=== PATIENT | female | born 1965 | race Caucasian/White ===

== ENCOUNTER 2016-09-27 21:25 | Emergency (ER) | payer MEDICAID ==
--- NOTE | 2016-09-27 21:32 | ED Physician Chart ---
Chief Complaint/HPI - Patient Information Date Seen:: 09/27/16 Time Seen:: 21:32 Chief Complaint:: throat pain History of Present Illness:: 51-year-old female history of esophageal stricture complains of acute, intermittent, moderate to severe, 8 out of 10, throat pain that feels like someone is squeezing her throat since yesterday. Has had similar symptoms in the past. Has some associated sensation of shortness of breath. Has regular EGDs every 3 months for esophageal dilatation. History is for dilatation. Has used albuterol in the past which helps her Historian:: Patient Review:: Nurse's Note Reviewed Review of Systems - Review of Systems Other: Complete system review otherwise unremarkable except as noted in history of present illness. Past Medical History - Past Medical History Past Medical History: Other (cervical cancer, esophageal stricture) Family History: None Social History: Non Smoker, No Alcohol, No Drug Use, Other Surgical History: None Psychiatricy History: None Medication: Reviewed Family Medical History - Family Member Mother History Unknown: Yes Physical Exam - Physical Examination Other:: INITIAL VITAL SIGNS: Reviewed by me GENERAL: Alert and interactive. No acute distress HEAD: Head is normocephalic and atraumatic EYES: EOMI. PERRL. No scleral icterus. No conjunctival injection ENT: Moist mucous membranes. NECK: Supple. No masses. Full range of motion RESPIRATORY: No tachypnea. Clear breath sounds bilaterally. No wheezing, rales, or rhonchi CV: Regular rate and rhythm. No murmurs, rubs, or gallops ABDOMEN: Soft, non-distended, non-tender. No guarding. No rebound. No masses. EXTREMITIES: No deformity. No cyanosis. No edema. SKIN: Warm and dry. No obvious rashes. NEUROLOGIC: Alert and oriented. Face is symmetric. Speech is normal. Moves all extremities equally. Motor and sensory distally intact. Labs/Radiology/EKG Results - Lab Results Results: Lab Results 09/27/16 09/27/16 09/27/16 Range/Units 21:44 21:44 21:44 WBC 6.4 (4.8-10.8) Th/cmm RBC 3.64 L (3.80-5.10) Mil/cmm Hgb 12.1 (11.7-15.5) gm/dL Hct 34.1 L (35.0-45.0) % MCV 93.7 (81-100) fl MCH 33.2 H (27.0-31.0) pg MCHC Differential 35.4 (28.0-36.0) pg RDW 12.5 (11.5-20.0) % Plt Count 248 (150-400) Th/cmm MPV 7.2 fl Neutrophils % 51.6 (40.0-80.0) % Lymphocytes % 33.5 (20.0-50.0) % Monocytes % 8.7 (2.0-10.0) % Eosinophils % 5.8 H (0.0-5.0) % Basophils % 0.4 (0.0-2.0) % PT 12.0 H (9.5-11.5) SECONDS INR 1.14 (0.5-1.4) Sodium 137 (136-145) mEq/L Potassium 3.7 (3.5-5.1) mEq/L Chloride 107 (98-107) mEq/L Carbon Dioxide 24.7 (21.0-31.0) mEq/L Anion Gap 9.0 (7.0-16.0) BUN 9 (7-25) mg/dL Creatinine 0.6 (0.6-1.2) mg/dL Est GFR ( Amer) > 60.0 (>90) ml/min Est GFR (Non-Af Amer) > 60.0 ml/min BUN/Creatinine Ratio 15.0 Glucose 93 (70-105) mg/dL Calcium 8.9 (8.6-10.3) mg/dL Total Bilirubin 0.4 (0.3-1.0) mg/dL AST 18 (13-39) U/L ALT 16 (7-52) U/L Alkaline Phosphatase 50 (34-104) U/L Creatine Kinase 66 (30-223) U/L Troponin I (0.01-0.05) ng/mL B-Natriuretic Peptide (5.0-100.0) pg/mL Total Protein 6.6 (6.0-8.3) gm/dL Albumin 3.9 (3.7-5.3) gm/dL Globulin 2.7 gm/dL Albumin/Globulin Ratio 1.4 (1.0-1.8) 09/27/16 Range/Units 21:44 WBC (4.8-10.8) Th/cmm RBC (3.80-5.10) Mil/cmm Hgb (11.7-15.5) gm/dL Hct (35.0-45.0) % MCV (81-100) fl MCH (27.0-31.0) pg MCHC Differential (28.0-36.0) pg RDW (11.5-20.0) % Plt Count (150-400) Th/cmm MPV fl Neutrophils % (40.0-80.0) % Lymphocytes % (20.0-50.0) % Monocytes % (2.0-10.0) % Eosinophils % (0.0-5.0) % Basophils % (0.0-2.0) % PT (9.5-11.5) SECONDS INR (0.5-1.4) Sodium (136-145) mEq/L Potassium (3.5-5.1) mEq/L Chloride (98-107) mEq/L Carbon Dioxide (21.0-31.0) mEq/L Anion Gap (7.0-16.0) BUN (7-25) mg/dL Creatinine (0.6-1.2) mg/dL Est GFR ( Amer) (>90) ml/min Est GFR (Non-Af Amer) ml/min BUN/Creatinine Ratio Glucose (70-105) mg/dL Calcium (8.6-10.3) mg/dL Total Bilirubin (0.3-1.0) mg/dL AST (13-39) U/L ALT (7-52) U/L Alkaline Phosphatase (34-104) U/L Creatine Kinase (30-223) U/L Troponin I < 0.01 L (0.01-0.05) ng/mL B-Natriuretic Peptide 18.3 (5.0-100.0) pg/mL Total Protein (6.0-8.3) gm/dL Albumin (3.7-5.3) gm/dL Globulin gm/dL Albumin/Globulin Ratio (1.0-1.8) - Radiology Results Results: Single AP VIEW Portable Chest X-ray was interpreted independently and contemporaneously by Ad Kraft MD: No cardiomegaly Normal mediastinum No lung infiltrates No pneumothorax No soft tissue or bony abnormalities - EKG Interpretations Comments:: 12-lead EKG Interpretation by dA Kraft MD: Normal Sinus Rhythm with ventricular rate of 64 beats per minute Normal axis Normal intervals No acute ST or T wave changes. No obvious STEMI ED Septic Shock - . Is Septic Shock (SBP<90, OR Lactate>4 mmol\L) present?: No Reassessment (Disposition) - Reassessment Reassessment:: Patient has chronic issues with esophageal stricture. She felt much better after treatment. There was no sign of acute distress. Labs were essentially unremarkable. Recommended follow-up with PCP 1-2 days. Gave return to ER precautions. Patient understands and agrees with the plan. Blood pressure was noted to be elevated over 120/80. There were no signs of hypertension. Discussed the findings with the patient and recommended that the patient follow up with the primary care physician regarding the elevated blood pressure. Reassessment Condition:: Improved - Diagnosis Diagnosis:: Acute throat pain due to esophageal stricture Elevated blood pressure without the diagnosis of hypertension - Aftercare/Follow up Instructions Aftercare/Follow-Up Instructions:: Counseled pt regarding lab results/diagnosis & need follow up, Refer to Discharge Instructions - Patient Disposition Discharge/Transfer:: Home Time:: 23:02 Condition at Disposition:: Improved ED Discharge Plan - Patient Disposition Admit/Discharge/Transfer: PT DISCHARGED HOME Condition at Disposition: Improved Instructions: Esophageal Stricture
[2016-09-27] MEDS ORDERED: Sodium Chloride 0.9% 1,000 ML IV ONE (21:39)
[2016-09-27 21:51] LABS: % BASOPHILS 0.4 % (0.0-2.0); % EOSINOPHILS 5.8 % (0.0-5.0); % LYMPHOCYTES 33.5 % (20.0-50.0); % MONOCYTES 8.7 % (2.0-10.0); % NEUTROPHILS 51.6 % (40.0-80.0); HEMATOCRIT 34.1 % (35.0-45.0); HEMOGLOBIN 12.1 gm/dL (11.7-15.5); MEAN CELL VOLUME 93.7 fl (81-100); MEAN CORPUSCULAR HEMOGLOBIN 33.2 pg (27.0-31.0); MEAN CORPUSCULAR HGB CONC 35.4 pg (28.0-36.0); MEAN PLATELET VOLUME 7.2 fl; NEUTROPHILE ABSOLUTE 3.3 Th/cmm (1.8-8.0); PLATELET COUNT 248 Th/cmm (150-400); RED BLOOD COUNT 3.64 Mil/cmm (3.80-5.10); RED CELL DISTRIBUTION WIDTH 12.5 % (11.5-20.0); WHITE BLOOD COUNT 6.4 Th/cmm (4.8-10.8)
[2016-09-27 22:05] LABS: INR 1.14 (0.5-1.4)
[2016-09-27 22:07] LABS: ALB/GLOB RATIO 1.4 (1.0-1.8); ALKALINE PHOSPHATASE 50 U/L (34-104); BILIRUBIN,TOTAL 0.4 mg/dL (0.3-1.0); BUN - UREA NITROGEN 9 mg/dL (7-25); CALCIUM SERUM 8.9 mg/dL (8.6-10.3); CARBON DIOXIDE 24.7 mEq/L (21.0-31.0); CHLORIDE 107 mEq/L (98-107); CREATININE - SERUM 0.6 mg/dL (0.6-1.2); GLUCOSE 93 mg/dL (70-105); POTASSIUM SERUM 3.7 mEq/L (3.5-5.1); SGOT 18 U/L (13-39); SGPT/ALT 16 U/L (7-52); SODIUM SERUM 137 mEq/L (136-145)
[2016-09-27 22:09] LABS: TROP I < 0.01 ng/mL (0.01-0.05)
[2016-09-27 22:14] LABS: BNP 18.3 pg/mL (5.0-100.0)
[2016-09-27] MEDS ORDERED: Albuterol/Ipratropium Neb 3 ML AERS HHN ONE ×2 (22:20→22:30)
[2016-09-27] MEDS ORDERED: Dexamethasone Sodium Phos 4 mg/mL Vial IM STA (22:20)
[2016-09-27] MEDS ORDERED: Dexamethasone Sodium Phos 10 mg/mL PF Vial ONE (22:36)
== END 2016-09-27 23:40 | disposition home or self-care (01) ==
LOC: ER 21:25
DX: K22.2 Esophageal obstruction (principal); R04.0 Epistaxis; Z88.6 Allergy status to analgesic agent; Z88.8 Allergy status to other drugs, medicaments and biological substances; Z85.41 Personal history of malignant neoplasm of cervix uteri
CPT/HCPCS: 99285; 96372 ×2; 94640; 93005; 84484; 83880; 36415; 85025; 85610; 82550; 80053; J1885; 81025-TC; J2060; J7030

== ENCOUNTER 2016-10-02 19:21 | Emergency (ER) | payer MEDICAID ==
--- NOTE | 2016-10-02 19:24 | ED Physician Chart ---
Chief Complaint/HPI - Patient Information Date Seen:: 10/02/16 Time Seen:: 19:24 Chief Complaint:: throat pain History of Present Illness:: 51-year-old female, history of esophageal strictures, complains of acute, moderate, sensation of throat pain that started several days ago. Has had multiple similar symptoms in the past. Typically uses albuterol and ipratropium breathing treatments which makes her symptoms better. Says that she gets esophageal dilatation every 3 much which also helps her symptoms. Denies any choking, inability to talk, shortness of breath, nausea, vomiting, headache, acute vision changes, chest pain or palpitations. Allergies:: Allergies Allergy/AdvReac Type Severity Reaction Status Date / Time acetaminophen [From Vicodin] Allergy Verified 09/27/16 22:50 hydrocodone [From Vicodin] Allergy Verified 09/27/16 22:50 morphine Allergy Verified 09/27/16 22:50 Historian:: Patient Review:: Nurse's Note Reviewed Review of Systems - Review of Systems Other: Complete system review otherwise unremarkable except as noted in history of present illness. Past Medical History - Past Medical History Past Medical History: HTN, Other (esophageal strictures, history of cervical cancer) Family History: None Social History: Non Smoker, No Alcohol, No Drug Use Surgical History: None Psychiatricy History: None Medication: None Family Medical History - Family Member Mother History Unknown: Yes Physical Exam - Physical Examination Other:: INITIAL VITAL SIGNS: Reviewed by me GENERAL: Alert. Well developed and well nourished HEAD: Normocephalic EYES: No conjunctival injection ENT: Oral mucosa is moist NECK: Supple. No masses. Full range of motion RESPIRATORY: Non-labored respirations CV: 2+ peripheral pulses EXTREMITIES: No deformity SKIN: Warm and dry NEUROLOGIC: Alert ED Septic Shock - . Is Septic Shock (SBP<90, OR Lactate>4 mmol\L) present?: No Reassessment (Disposition) - Reassessment Reassessment:: Patient was seen by me. I have seen her in the past for similar symptoms. Discussed treatment. We agreed that ordering albuterol to troponin would help her. I ordered it for her. Within several minutes she told the front office assistant that she did not do that she needed treatment. And she eloped prior to receiving treatment. Reassessment Condition:: Improved - Diagnosis Diagnosis:: Acute Throat pain - Patient Disposition Discharge/Transfer:: Faina/FABIEN Time:: 19:34 Condition at Disposition:: Improved ED Discharge Plan - Patient Disposition Condition at Disposition: Improved
[2016-10-02] MEDS ORDERED: Albuterol/Ipratropium Neb 3 ML AERS HHN ONE (19:26)
== END 2016-10-02 19:29 | disposition left against medical advice (07) ==
LOC: ER 19:21
DX: R07.0 Pain in throat (principal); I10 Essential (primary) hypertension; Z88.6 Allergy status to analgesic agent
CPT/HCPCS: Z7502